=== PATIENT | male | born 1950 | race Hispanic/Latino ===

== ENCOUNTER 2018-12-17 07:07 | Outpatient (CLI) | payer MEDICARE, OTHER | END 2018-12-17 07:08 | disposition home or self-care (01) | LOC: C.RADH 07:07 | DX: M25.571 Pain in right ankle and joints of right foot (principal) ==

== ENCOUNTER 2018-12-17 07:15 | Outpatient (CLI) | payer MEDICARE, OTHER | END 2018-12-17 07:16 | disposition home or self-care (01) | LOC: C.LAB 07:15 | DX: E11.65 Type 2 diabetes mellitus with hyperglycemia (principal); E78.2 Mixed hyperlipidemia; E03.9 Hypothyroidism, unspecified; N39.0 Urinary tract infection, site not specified ==